=== PATIENT | female | born 1980 | race Caucasian/White ===

== ENCOUNTER → 2016-07-04 | Outpatient (CLI) | payer BC ==
--- NOTE | 2016-07-11 10:16 | RADIOLOGY REPORT PS360 ---
DIG MAMM-DX DEVORA W/AVWS W/CAD, US BREAST-RT COMPLETE W/AXILLA COMPARISON: None, baseline exam INDICATION: Palpable abnormality upper outer right breast near the nipple ORDERING PHYSICIAN: Tez Calderón MD PATIENT AGE: 36 years TECHNIQUE: Standard mammographic images obtained with spot compression views of both breasts. FINDINGS: There is dense fibroglandular tissue which decreases sensitivity of mammography. A marker is placed at the region of the palpable abnormality. There is some asymmetric fibroglandular tissue in this area but no discrete mass is evident in the retroareolar region. Left breast: There was a 1 cm nodule in the outer left breast. This has a fairly benign mammographic appearance. A skin lesion is present and marked anterior to this area. This nodule probably at the 3:00 region. Right breast ultrasound: There are 2 cysts at 12:00 measuring 4 mm and one at 3 mm. A 7 mm cyst is present 4:00 and 6 mm cyst at 6:00. There is a 1 cm cyst in the hind the nipple corresponding to the palpable abnormality. There is some increased vascular flow posterior to this region and the margins are somewhat irregular. Left breast ultrasound: Patient was advised to have left breast ultrasound could not stay for the exam. The patient was scheduled for left breast ultrasound but did not show up for the exam. Suggest patient return for left breast ultrasound. IMPRESSION: Mildly suspicious cystic area in the right retroareolar region with some irregular margins and some increased flow posteriorly. Fine-needle aspiration recommended. Incomplete evaluation of left breast, left recommend left breast ultrasound. BI-RADS CATEGORY: BI-RADS Category 4_Suspicious Abnormality right breast. Suggest ultrasound guided fine needle aspiration of the mildly suspicious nodule Incomplete evaluation of the left breast, BI-RADS Category 0 RECOMMENDED FOLLOWUP: 1. Ultrasound-guided fine-needle aspiration of the right breast complex cyst. 2. Ultrasound left breast. (A letter has been sent to the patient regarding results of the study.)
== END ==
LOC: RAD 13:30
DX: N63 Unspecified lump in breast (principal); R92.8 Other abnormal and inconclusive findings on diagnostic imaging of breast
CPT/HCPCS: G0204